=== PATIENT | male | born 1960 | race Caucasian/White ===

== ENCOUNTER → 2016-04-22 | Outpatient (CLI) | payer OTHER | LOC: BHFA 15:00 | PROVIDERS: ATTEND Internal Medicine Cardiovascular Disease | DX: R09.89 Other specified symptoms and signs involving the circulatory and respiratory systems (principal) ==

== ENCOUNTER 2016-09-19 08:27 | Emergency (ER) | payer OTHER ==
[2016-09-19 08:35] VITALS: RESP 16; TEMP 97.7; O2SAT 95
--- NOTE | 2016-09-19 09:07 | EDPHY ---
H & P Stated Complaint: Swelling above "pubic hair" - noticed this morning. Time Seen by Provider: 09/19/16 08:57 - Personal History Current Tetanus Diphtheria and Acellular Pertussis (TDAP): Yes - Medical/Surgical History Hx Asthma: No Hx Chronic Respiratory Disease: No Hx Diabetes: No Hx Cardiac Disease: No Hx Renal Disease: No Hx Cirrhosis: No Hx Alcoholism: No Hx HIV/AIDS: No Hx Splenectomy or Spleen Trauma: No Other PMH: Osteoporosis. Torn miniscus left side. HTN - Social History Smoking Status: Heavy smoker Constitutional: Initial Vital Signs Temperature (C) 36.5 C 09/19/16 08:30 Heart Rate 82 09/19/16 08:30 Respiratory Rate 16 09/19/16 08:30 Blood Pressure 160/99 H 09/19/16 08:30 O2 Sat (%) 95 09/19/16 08:30 O2 Delivery Mode Room Air Allergies/Adverse Reactions: mussel Allergy (Uncoded 09/15/12 12:32) oyster Allergy (Uncoded 04/05/12 09:49) vomiting, rash Home Medications: Medication Instructions Recorded LISINOPRIL PO DAILY 04/02/10 Medical Decision Making - Diagnostics Imaging Results: Imaging Impressions Extremity Ultrasound 09/19/16 09:17 Impression: Right inguinal indirect hernia with a 2.2 cm neck, herniating bowel. Findings and recommendations discussed with Mary Lou Burks at 1015 hours, 2016. Final report concurs with initial preliminary interpretation. Imaging: Discussed imaging studies w/ physically impaired teacher Radiologist ED Course/Re-evaluation: CHIEF COMPLAINT: Groin swelling HISTORY OF PRESENT ILLNESS: The patient is a 56 y/o male complaining of swelling and discomfort around his right groin for the last few days. He says 6 weeks ago he had "blood dripping from my penis and thought I passed a kidney stone." He was evaluated at [facility] for this and did not require further follow up. He then began to notice swelling around his right groin particularly while standing or walking. He denies significant pain at the site or associated urinary symptoms. No abdominal pain, vomiting, diarrhea, or fever. He has a history of hypertension. No history of hernias. REVIEW OF SYSTEMS: A 10 point review of systems was performed and is negative with the exception of the elements mentioned in the history of present illness. PHYSICAL EXAM: HR, BP, O2 Sat, RR. Temp noted General Appearance: Alert, well hydrated, appropriate, and non-toxic appearing. Head: Atraumatic without scalp tenderness or obvious injury Eyes: Pupils equal, round, reactive to light and accommodation, EOMI, no trauma , no injection. Nose: Atraumatic, no rhinorrhea, clear. Throat: Mucus membranes moist. Neck: Supple, nontender, no lymphadenopathy. Respiratory: No retractions, no distress, no wheezes, and no accessory muscle use. Lungs are clear to auscultation bilaterally. Cardiovascular: Regular rate and rhythm, no murmurs, rubs, or gallops. Good capillary refill all extremities. Gastrointestinal: Abdomen is soft, reducible right inguinal hernia with moderate tenderness, non-distended, no rebound, no guarding, no peritoneal signs. Musculoskeletal: Normal active ROM of all extremities, atraumatic. Neurological: Alert, appropriate, and interactive. Nonfocal neuro exam. Skin: No rashes, good turgor, no nodules on palpation. Past medical history: Hypertension, osteoarthritis Past surgical history: denies Family history: noncontributory Social history: Homeless, [facility] PCP: [facility] DIAGNOSTICS/PROCEDURES/CRITICAL CARE TIME: Groin US: right inguinal 2.2cm hernia DIFFERENTIAL DIAGNOSIS: The differential diagnosis for the patient's abdominal pain included but was not limited to appendicitis, cholecystitis, hernias, testicular torsion, gastritis, and urinary tract infection. MEDICAL DECISION MAKING: This is a homeless 56 y/o male who presents with a presumed reducible right inguinal hernia with moderate tenderness. No evidence of incarceration. Plan for US to rule out hernia. Patient declines pain medication at this time. US confirms right inguinal hernia without evidence of incarceration or strangulation. I discussed these results with the patient during reassessment. He will be discharged with referral to surgeon for outpatient surgical management. Return precautions given. He is comfortable with this plan. Departure - Departure Disposition: Home, Routine, Self-Care Clinical Impression: Inguinal hernia Qualifiers: Obstruction and gangrene presence: without obstruction or gangrene Laterality: unilateral Recurrence: non-recurrent Qualified Code(s): K40.90 - Unilateral inguinal hernia, without obstruction or gangrene, not specified as recurrent Condition: Good Instructions: Inguinal Hernia (ED) Additional Instructions: Follow up with Dr. Grubbs, surgeon, this week to discuss surgical options. Return to the ED for severe pain, dramatic increase in swelling, inability to have bowel movements, fever, or other worsening of condition. Referrals: Iwona Roldan PA [Primary Care Provider] - As per Instructions Sukumar Grubbs MD [Medical Doctor] - As per Instructions Report Scribed for: Damian Johnson Report Scribed by: Savannah Ferrell Date of Report: 09/19/16 Time of Report: 09:08
[2016-09-19 11:02] VITALS: BP 158/79; PULSE 89
== END 2016-09-19 11:02 | disposition home or self-care (01) ==
DX: K40.90 Unilateral inguinal hernia, without obstruction or gangrene, not specified as recurrent (principal); I10 Essential (primary) hypertension; F17.200 Nicotine dependence, unspecified, uncomplicated

== ENCOUNTER 2016-10-02 22:13 | Emergency (ER) | payer OTHER ==
[2016-10-02] MEDS ORDERED: HYDROCODONE/APAP 5/325 TAB PO ONE (22:19)
[2016-10-02] MEDS ORDERED: HYDROCOD/APAP 5/325 PREPACK#6 BTL TAKEHOME ONE (22:19)
--- NOTE | 2016-10-02 22:22 | EDPHY ---
H & P HPI/ROS: HPI CHIEF COMPLAINT: Right inguinal pain hernia pain HISTORY OF PRESENT ILLNESS: This patient 56-year-old male, significant past medical history for hypertension, gout, homeless, presents emergency room with right groin pain. He was recently diagnosed 3 weeks ago with hernia. He is supposed to follow-up with Dr. Everton Grubbs. States he had a bowel movement with straining some and felt worsening pain in his right groin. Presents emergency room by EMS. He has not had a fever. Denies vomiting. Normal bowel movement. Of note here in the emergency room is a soft reducible right inguinal hernia. Abdomen is nontender. He is not vomiting he appears well nontoxic. Past Medical History: Hypertension, gout Past Surgical History: No recent surgery Social History: Homeless, denies daily use of drugs alcohol tobacco products Family History: Noncontributory ROS REVIEW OF SYSTEMS: A comprehensive 10 point review of systems is otherwise negative aside from elements mentioned in the history of present illness. Exam Constitutional appears well nontoxic triage nursing summary reviewed, vital signs reviewed, awake/alert. Eyes normal conjunctivae and sclera, EOMI, PERRLA. HENT normal inspection, atraumatic, moist mucus membranes, no epistaxis, neck supple/ no meningismus, no raccoon eyes. Respiratory clear to auscultation bilaterally, normal breath sounds, no respiratory distress, no wheezing. Cardiovascular rate normal, regular rhythm, no murmur, no edema, distal pulses normal. Gastrointestinal soft, non-tender, no rebound, no guarding, normal bowel sounds, no distension, no pulsatile mass. Genitourinary inguinal region: Right inguinal region there is slight bulge, palpable hernia, soft, reducible, nontender. Abdomen nontender. Musculoskeletal no midline vertebral tenderness, full range of motion, no calf swelling, no tenderness of extremities, no meningismus, good pulses, neurovascularly intact. Skin pink, warm, & dry, no rash, skin atraumatic. Neurologic awake, alert and oriented x 3, AAOx3, moves all 4 extremities equally, motor intact, sensory intact, CN II-XII intact, normal cerebellar, normal vision, normal speech. Psychiatric normal mood/affect. Heme/Lymph/Immune no lymphadenopathy. Differential Diagnosis: Includes but is not limited to in a particular order: Inguinal hernia, soft reducible, doubt incarcerated hernia. Medical Decision Making: I was able to reduce the patient's hernia here in the emergency room at soft reducible. Nontender. He complains of intermittent pain. Explain he needs to follow-up with Dr. Everton Grubbs outpatient. I have also given him a limited supply of [place] for pain. He understands he can cause constipation. He understands to not strain. He understands return emergency room if he has severe abdominal pain, vomiting or any questions or concerns. Source: Patient, EMS - Medical/Surgical History Hx Asthma: No Hx Chronic Respiratory Disease: No Hx Diabetes: No Hx Cardiac Disease: No Hx Renal Disease: No Hx Cirrhosis: No Hx Alcoholism: No Hx HIV/AIDS: No Hx Splenectomy or Spleen Trauma: No Other PMH: Osteoporosis. Torn miniscus left side. HTN - Social History Smoking Status: Heavy smoker Allergies/Adverse Reactions: mussel Allergy (Uncoded 09/15/12 12:32) oyster Allergy (Uncoded 04/05/12 09:49) vomiting, rash Home Medications: Medication Instructions Recorded LISINOPRIL PO DAILY 04/02/10 Departure - Departure Disposition: Home, Routine, Self-Care Clinical Impression: Inguinal hernia Qualifiers: Obstruction and gangrene presence: without obstruction or gangrene Laterality: unilateral Recurrence: recurrent Qualified Code(s): K40.91 - Unilateral inguinal hernia, without obstruction or gangrene, recurrent Condition: Good Instructions: Inguinal Hernia (ED) Additional Instructions: 1.Make sure your are not straining. 2. Drink lots of fluids. 3. Take stool softeners. 4. Return to the emergency room if you have severe abdominal pain, fever, vomiting. 5. Please follow up with General surgery. Referrals: NONE *PRIMARY CARE P,. [Primary Care Provider] - As per Instructions Sukumar Grubbs MD [Medical Doctor] - As per Instructions
[2016-10-02 22:34] VITALS: BP 158/101; PULSE 65; RESP 16; TEMP 98.4; O2SAT 94
== END 2016-10-02 22:56 | disposition home or self-care (01) ==
LOC: EDUNIT#
DX: K40.91 Unilateral inguinal hernia, without obstruction or gangrene, recurrent (principal); I10 Essential (primary) hypertension; F17.200 Nicotine dependence, unspecified, uncomplicated

== ENCOUNTER 2016-10-31 05:18 | Inpatient (IN) | payer OTHER ==
--- NOTE | 2016-10-29 18:24 | GHP ---
[f rep st] HISTORY AND PHYSICAL CHIEF COMPLAINT: Right inguinal hernia. HISTORY OF PRESENT ILLNESS: Chidi is a 56-year-old homeless male with gout and high blood pressure, who was seen in the emergency department for a painful right inguinal hernia, most noticed after prolonged episodes of coughing, that he says he sustained after spending lots of time outside obtaining financial assistance. It is worse with coughing and straining. He denies nausea, vomiting, diarrhea, constipation, nocturia, or previous abdominal surgery. He does smoke marijuana and occasionally, but not regularly, tobacco. Vicodin has been helping his pain. PAST MEDICAL HISTORY: COPD, gout, hypertension, tobacco abuse. MEDICATION LIST: Allopurinol 100 mg tablet, atenolol 50 mg oral tablet, lisinopril 30 mg tablet. ALLERGY LIST: No known drug allergies. SOCIAL HISTORY: Formerly used alcohol. Homeless. Tobacco, current every day user. PHYSICAL EXAMINATION: GENERAL: Alert, in no acute distress. HEENT: Normocephalic, atraumatic. CHEST: Clear to auscultation bilaterally. COR: Regular rate and rhythm. ABDOMEN: Medium-sized, reducible right inguinal hernia. Early signs of left inguinal hernia. GENITALIA: Testicles nontender. No masses. SKIN: Warm and dry. ASSESSMENT: Bilateral inguinal hernias PLAN: Risks and options were discussed. He is not very interested in hearing them right now. He says he just wants it fixed. We talked about laparoscopic repair with mesh. I think he will need a bilateral repair. We talked about the possibilities for open procedure, damage to the bowels, bladder, spermatic cord, testicles, infection, bleeding, and injury to a nerve. He wants to proceed. /[id number]/MODL MTDD
[2016-10-31] MEDS ORDERED: ceFAZolin 2 GM/DEXTROSE 100 ML IV ONE (05:38)
[2016-10-31] MEDS ORDERED: LIDOCAINE 1% 2 ML INJ ID PRN (06:17)
[2016-10-31] MEDS ORDERED: LR 1,000 ML IV ONE (06:17)
[2016-10-31] MEDS ORDERED: BUPIVACAINE 0.5% 30 ML SDV ONE (06:44)
--- NOTE | 2016-10-31 06:45 | PDHPUP ---
History & Physical Update H&P update statement: This history and physical update is based on an assessment of the patient which was completed after admission or registration (within 24 hours), but prior to the surgery/procedure. H&P update: H&P reviewed & patient examined, no change in patient's condition since H&P completed
[2016-10-31] MEDS ORDERED: MIDAZOLAM 2 MG/2 ML VIAL IVP ONE (07:01)
--- NOTE | 2016-10-31 07:01 | PDANEPAE ---
ANE History of Present Illness 56 yo male with RIH, possible LIH ANE Past Medical History Past Medical History: Chronic cough. Nothing new or worse lately. HTN, gout, OA of the knees - Cardiovascular History Hx Hypertension: Yes - Pulmonary History Hx Oxygen in Use at Home: No Hx Sleep Apnea: No - Endocrine History Hx Diabetes: No - GI History GERD: mild (green peppers triggers it.) - Other Health History Other Health History: gout - Chronic Pain History Chronic Pain: No ANE Review of Systems Review of systems is: negative ANE Patient History - Allergies Allergies/Adverse Reactions: No Known Drug Allergies Allergy (Verified 10/31/16 06:08) mussel Allergy (Uncoded 09/15/12 12:32) oyster Allergy (Uncoded 04/05/12 09:49) vomiting, rash - Home Medications Home medications: home medication list seen and reviewed Home Medications: LISINOPRIL PO DAILY 04/02/10 [Last Taken 10/30/16 16:30] Allopurinol 10/02/16 [Last Taken 10/30/16 14:30] Atenolol 10/02/16 [Last Taken 10/30/16 16:30] - NPO status NPO Since - Liquids (Date): 10/30/16 NPO Since - Liquids (Time): 21:30 NPO Since - Solids (Date): 10/30/16 NPO Since - Solids (Time): 19:30 - Anes Hx Anes Hx: no prior problems - Smoking Hx Smoking Status: Current every day smoker Marijuana use: Yes - Alcohol Use Alcohol Use: Sober (12 years sober.) - Family Anes Hx Family Hx Anesthesia Complications: adopted. ANE Labs/Vital Signs - Vital Signs Blood Pressure: 113/61 Heart Rate: 53 Respiratory Rate: 17 O2 Sat (%): 94 Height: 175.26 cm Weight: 80.739 kg ANE Physical Exam - Airway Neck exam: FROM Mouth exam: poor dentition - Pulmonary Pulmonary: other (coarse BS, no wheezing/rhonchi/crackles) - ASA Status ASA Status: III ANE Anesthesia Plan Anesthesia Plan: general endotracheal anesthesia
[2016-10-31] MEDS ORDERED: ROCURONIUM 50 MG/5 ML VIAL ONE (07:09)
[2016-10-31] MEDS ORDERED: DIAZEPAM 10 MG/2 ML SYR ONE (07:09)
[2016-10-31] MEDS ORDERED: PROPOFOL/EMULSION 500 MG/50 ML BOTTLE IV ONE (07:09)
[2016-10-31] MEDS ORDERED: fentaNYL 100 MCG/2 ML INJ ONE ×3 (07:09→09:11)
[2016-10-31] MEDS ORDERED: DEXAMETHASONE 4 MG/ML VIAL ONE (07:10)
[2016-10-31] MEDS ORDERED: ONDANSETRON 4 MG/2 ML VIAL ONE (07:10)
[2016-10-31] MEDS ORDERED: LIDOCAINE 2% 5 ML SDV ONE (07:10)
[2016-10-31] MEDS ORDERED: SUGAMMADEX SODIUM 200 MG/2 ML VIAL IVP ONE (08:12)
[2016-10-31] MEDS ORDERED: PROMETHAZINE HCL 25 MG/ML INJ IVP PRN (08:16)
[2016-10-31] MEDS ORDERED: ALBUTEROL 3 ML DEYVIAL IH PRN (08:16)
[2016-10-31] MEDS ORDERED: ACETAMINOPHEN 500 MG TAB PO PRN (08:16)
[2016-10-31] MEDS ORDERED: LABETALOL HCL 50 MG/10 ML SYR IVP PRN (08:16)
[2016-10-31] MEDS ORDERED: NALOXONE HCL 0.4 MG/ML INJ IVP PRN (08:16)
[2016-10-31] MEDS ORDERED: LR 500 ML IV PRN (08:16)
[2016-10-31] MEDS ORDERED: HYDROCODONE/APAP 5/325 TAB PO PRN ×2 (08:16→08:56)
[2016-10-31] MEDS ORDERED: KETOROLAC 30 MG/1 ML SDV ONE (08:17)
--- NOTE | 2016-10-31 08:36 | POSTOPPROG ---
Post Op Note Date of Operation: 10/31/16 Surgeon: Sukumar Grubbs [employer] Specialist: Donna Fermin Anesthesiologist: Juliette Pan Anesthesia: GET(General Endotracheal) Pre-op Diagnosis: BIH Post-op Diagnosis: Same Findings: bilateral hernia Inf/Abcess present in the surg proc area at time of surgery?: No Depth: Deep Incisional (Fascial) EBL: Minimal Specimen(s): None
--- NOTE | 2016-10-31 08:49 | POSTANESTH ---
Post Anesthetic Evaluation Cardiovascular Status: Normal, Stable Respiratory Status: Normal, Stable Level of Consciousness/Mental Status: Can Participate in Eval, Moderately Sleepy Pain Control: Adequate, Prn Tx Ordered Nausea/Vomiting Control: Adequate, Prn Tx Ordered Complications Possibly Related to Anesthesia: None Noted
[2016-10-31] MEDS ORDERED: ONDANSETRON 4 MG/2 ML VIAL IVP PRN (08:56)
[2016-10-31] MEDS: fentaNYL 100 MCG/2 ML INJ IVP PRN ×2 (09:13→09:26)
--- NOTE | 2016-10-31 09:58 | GOP ---
[f rep st] OPERATIVE REPORT DATE OF OPERATION: SURGEON: Sukumar Grubbs MD METAL FINISH INSPECTOR: Donna Fermin. ANESTHESIOLOGIST: Dr. Cerna. PREOPERATIVE DIAGNOSIS: Right inguinal hernia, possible bilateral inguinal hernias. POSTOPERATIVE DIAGNOSIS: Bilateral inguinal hernias. PROCEDURE PERFORMED: Laparoscopic bilateral inguinal hernia repairs. FINDINGS: The patient was found to have a large indirect right inguinal hernia, and a more direct l eft inguinal hernia. DESCRIPTION OF PROCEDURE: Patient taken to the operating room, received satisfactory general endotr acheal anesthesia by Dr. Cerna. Placed in supine position, prepped and draped in usual sterile fa shion. Infraumbilical incision was made. Dissection was carried down to the rectus sheath, which w as incised. A subfascial tunnel was developed in the preperitoneal space. That was dissected free with a blunt dissector, which was replaced with CO2 insufflation and trocar. Two other trocars were placed in midline under direct vision. Trae ligament was exposed bilaterally. The cords were mo bilized bilaterally. Peritoneum was dissected off the cord structures. On the right, a large indir ect sac was dissected free and reduced. On the left, there was no indirect sac, but a direct defect . The contents were dissected free and reduced. Bilateral Covidien polyester mesh patches were estelle sukhdeep over the inguinal floor, a lay-on patch on the left side and a split patch to pass the limb arou nd the cord structures on the right side. Both patches were anchored with AbsorbaTack, securing the m to Trae ligament, lacunar ligament, the anterior abdominal wall, and the lateral abdominal wall outside the internal ring. He tolerated the procedure quite well. There were no complications. Bl ood loss was negligible. Pneumopreperitoneum was released, and trocars were removed under direct vi liza. Trocar sites were closed with 0 Vicryl for the fascia, 4-0 Monocryl subcuticular stitch for t he skin. All layers were infiltrated with Marcaine. Blood loss was negligible. /[id number]/MODL
[2016-10-31] MEDS: KETOROLAC 15 MG/1 ML SDV IVP SCH ×2 (13:44→18:29)
[2016-10-31] MEDS: DOCUSATE SODIUM 100 MG CAP PO SCH ×2 (13:46→21:43)
[2016-11-01] MEDS: KETOROLAC 15 MG/1 ML SDV IVP SCH ×4 (00:15→18:29)
[2016-11-01] MEDS ORDERED: ASPIRIN 325 MG TAB PO PRN (08:29)
[2016-11-01] MEDS: DOCUSATE SODIUM 100 MG CAP PO SCH ×2 (09:20→19:52)
[2016-11-01] MEDS: ASCORBIC ACID 500 MG TAB PO SCH ×2 (09:21→19:52)
--- NOTE | 2016-11-01 11:18 | SOAPPROG ---
SOAP Progress Note Assessment/Plan: Assessment/Plan: 56 Y homeless M s/p lap bilateral inguinal hernia repair, POD# 1. Popped a suture last night. Incision site is steri stripped and now clean and dry. Tolerating diet. Pain controlled. Regular home meds restarted. Dispo: Obs today for wound and social reasons, plan for d/c in am. Seen with Dr. Grubbs. S: lives [facility] the long-term. concerned about d/c, especially after wound problem described above. O: sleeping comfortably, easily awakened no wob abd soft, inc cdi, middle lap inc with multiple steris strips, dry 11/01/16 11:18 Objective: Vital Signs Temp Pulse Resp BP Pulse Ox 36.7 C 43 L 18 129/71 H 97 11/01/16 07:59 11/01/16 07:59 11/01/16 07:59 11/01/16 07:59 11/01/16 07:59 10/31/16 11/01/16 11/02/16 05:59 05:59 05:59 Intake Total 2560 Output Total 1105 Balance 1455 ICD10 Worksheet Patient Problems: Problems Problem Status Onset Inguinal hernia bilateral, non-recurrent Acute - ICD10 Problem Qualifiers (1) Inguinal hernia bilateral, non-recurrent Qualifiers: Obstruction and gangrene presence: O Recurrence: R
[2016-11-01] MEDS ORDERED: ATENOLOL 50 MG TAB PO SCH (16:00)
[2016-11-01] MEDS ORDERED: LISINOPRIL 40 MG TAB PO SCH (16:00)
[2016-11-01] MEDS ORDERED: ALLOPURINOL 100 MG TAB PO SCH (16:00)
[2016-11-01 22:15] VITALS: BP 93/65; O2SAT 96
[2016-11-02] MEDS: KETOROLAC 15 MG/1 ML SDV IVP SCH ×2 (00:21→05:56)
[2016-11-02 08:42] VITALS: PULSE 48; RESP 16; TEMP 98.7
[2016-11-02] MEDS ORDERED: ENOXAPARIN 40 MG/0.4 ML SYR SC SCH (09:00)
[2016-11-02] MEDS: ASCORBIC ACID 500 MG TAB PO SCH (10:26)
[2016-11-02] MEDS: DOCUSATE SODIUM 100 MG CAP PO SCH (10:26)
--- NOTE | 2016-11-02 10:29 | SOAPPROG ---
SOAP Progress Note Assessment/Plan: Assessment/Plan: 56 Y homeless M s/p lap bilateral inguinal hernia repair, POD# 2. D[facility]c to homeless [facility]. Note for restrictions. Rx. Outpatient f/u in 2 weeks. S: pain controlled. showered. passing gas. eating fine. no n/v. testicles sore. O: alert, nad mmm, ncat ctab rrr abd soft, +BS, hernia repairs intact, inc cdi gen: mild testicular tenderness and swelling 11/02/16 10:27 Objective: Vital Signs Temp Pulse Resp BP Pulse Ox 37.1 C 48 L 16 93/65 L 96 11/02/16 08:00 11/02/16 08:00 11/02/16 08:00 11/02/16 08:00 11/02/16 08:00 11/01/16 11/02/16 11/03/16 05:59 05:59 05:59 Intake Total 2560 550 Output Total 1105 350 Balance 1455 550 -350 ICD10 Worksheet Patient Problems: Problems Problem Status Onset Inguinal hernia bilateral, non-recurrent Acute - ICD10 Problem Qualifiers (1) Inguinal hernia bilateral, non-recurrent Qualifiers: Obstruction and gangrene presence: O Recurrence: R
== END 2016-11-02 12:28 | disposition home or self-care (01) | DRG 352 ==
LOC: F3E 05:18 → OBSVTOIN 11-01 13:17
PROVIDERS: ADMIT Surgery; ATTEND Surgery
PROC: 0YUA4JZ Supplement Bilateral Inguinal Region with Synthetic Substitute, Percutaneous Endoscopic Approach (ICD-10-PCS; principal; 2016-10-31 07:15)
DX: K40.20 Bilateral inguinal hernia, without obstruction or gangrene, not specified as recurrent (principal); J44.9 Chronic obstructive pulmonary disease, unspecified; I10 Essential (primary) hypertension; M10.9 Gout, unspecified; Z72.0 Tobacco use; Z59.0 Homelessness
CPT/HCPCS: C1727; C1781; J0690; J1100; J1650; J1885; J2250; J2405; J2704; J3010